=== PATIENT | female | born 1995 | race Caucasian/White ===

== ENCOUNTER 2017-01-17 06:35 | Inpatient (IN) | payer OTHER ==
[~2017-01-17] VITALS: Ht 149.9 cm; Wt 71.2 kg
[2017-01-17 07:30] VITALS: BP 114/74
[2017-01-17] MEDS ORDERED: PROMETHAZINE 25 MG/ML VIAL IVP PRN (07:35)
[2017-01-17] MEDS ORDERED: OXYTOCIN 20 UNITS in LACTATED RINGERS 1,000 ML IV SCH (07:35)
[2017-01-17] MEDS ORDERED: NALBUPHINE 10 MG/ML AMP IVP PRN (07:35)
[2017-01-17] MEDS ORDERED: CARBOPROST 250 MCG/ML AMP IM PRN (07:35)
[2017-01-17] MEDS ORDERED: LACTATED RINGERS 1,000 ML IV SCH (07:35)
[2017-01-17] MEDS ORDERED: METHYLERGONOVINE 0.2 MG/ML AMP IM PRN (07:35)
[2017-01-17] MEDS ORDERED: AMPICILLIN 2,000 MG in NACL 0.9% 100 ML IV STA (07:50)
--- NOTE | 2017-01-17 09:12 | NUR ---
PATIENT HAS BEEN SCREENED AND CATEGORIZED LOW NUTRITION RISK. PATIENT WILL BE SEEN WITHIN 7 DAYS OF ADMISSION. 01/23/[address]
[2017-01-17 09:17] LABS: BASOPHILS # (AUTO) 0.1 K/uL (0.00-0.22); BASOPHILS % (AUTO) 0.8 % (0.0-2.0); EOSINOPHILS # (AUTO) 0.1 K/uL (0-0.4); EOSINOPHILS % (AUTO) 0.4 % (0.0-4.0); HEMATOCRIT 37.7 % (36-48); HEMOGLOBIN 12.6 g/dL (12.0-16.0); LYMPHOCYTES # (AUTO) 1.8 K/uL (2.5-16.5); LYMPHOCYTES % (AUTO) 13.6 % (20.5-51.1); MEAN CORPUSCULAR HEMOGLOBIN 30 pg (27-31); MEAN CORPUSCULAR HGB CONC 33 g/dL (33-37); MEAN CORPUSCULAR VOLUME 89 fL (80-94); MONOCYTES # (AUTO) 0.6 K/uL (0.8-1.0); MONOCYTES % (AUTO) 4.4 % (1.7-9.3); NEUTROPHILS # (AUTO) 10.7 K/uL (1.8-7.7); NEUTROPHILS % (AUTO) 80.8 % (42.2-75.2); PLATELET COUNT (AUTO) 252 K/uL (140-450); RED BLOOD CELL COUNT(AUTO) 4.26 MIL/uL (4.20-5.40); RED CELL DISTRIBUTION WIDTH 13.6 % (11.6-13.7); WHITE BLOOD COUNT (AUTO) 13.3 K/uL (4.8-10.8)
[2017-01-17 09:33] LABS: ALBUMIN 2.5 g/dL (3.4-5.0); ANION GAP 15.3 (8-16); CARBON DIOXIDE 20.4 mmol/L (21-32); CREATININE 0.6 mg/dL (0.6-1.3); POTASSIUM 3.7 mmol/L (3.5-5.1); TOTAL BILIRUBIN 0.4 mg/dL (0.0-1.0)
[2017-01-17 10:07] LABS: BILIRUBIN,URINE NEGATIVE (NEGATIVE); BLOOD, URINE 2+ (NEGATIVE); COLOR,URINE YELLOW (YELLOW); LEUKOCYTE ESTERASE ,URINE NEGATIVE (NEGATIVE); NITRITE, URINE NEGATIVE (NEGATIVE); PH,URINE 7.5 (5.0-9.0); UGLUCOSE NEGATIVE (NEGATIVE)
[2017-01-17 10:19] LABS: APPEARANCE,URINE SLIGHTLY HAZY (CLEAR)
[2017-01-17 10:20] LABS: RBC,URINE 11-20 (MOD) /HPF (0-5)
[2017-01-17] MEDS ORDERED: AMPICILLIN 2,000 MG VIAL ONE (10:26)
[2017-01-17] MEDS ORDERED: OXYTOCIN 10 UNITS/ML VIAL IM SCH (12:00)
[2017-01-17] MEDS ORDERED: AMPICILLIN 1,000 MG VIAL ONE ×2 (14:13→18:21)
[2017-01-17] MEDS: AMPICILLIN 1,000 MG VIAL IVP SCH ×2 (14:28→18:15)
[2017-01-17] MEDS ORDERED: METHYLERGONOVINE 0.2 MG/ML AMP ONE (18:39)
[2017-01-17] MEDS ORDERED: OXYTOCIN 10 UNITS/ML VIAL ONE (18:47)
[2017-01-17] MEDS ORDERED: LIDOCAINE 1% 50 ML ONE (19:01)
[2017-01-17] MEDS ORDERED: MISOPROSTOL 100 MCG TAB RC SCH (19:10)
[2017-01-17] MEDS ORDERED: INFLUENZA VIRUS VACCINE QUAD 0.5 ML SYR IMVAC SCH (21:00)
[2017-01-17] MEDS: IBUPROFEN 800 MG TAB PO PRN (23:56)
[2017-01-18] MEDS ORDERED: TEMAZEPAM 15 MG CAP PO PRN ×2 (00:35)
[2017-01-18] MEDS ORDERED: METHYLERGONOVINE 0.2 MG TAB PO PRN (00:35)
[2017-01-18] MEDS ORDERED: METHYLERGONOVINE 0.2 MG/ML AMP IM PRN (00:35)
[2017-01-18] MEDS ORDERED: oxyCODONE/APAP 5/325 MG 1 TAB TAB PO PRN ×2 (00:35)
[2017-01-18] MEDS ORDERED: MEASLES, MUMPS, AND RUBELLA 1 VIAL SQVAC PRN (00:35)
[2017-01-18] MEDS ORDERED: BENZOCAINE/MENTHOL 20%-0.5% 60 GM CAN TP PRN (00:35)
[2017-01-18] MEDS ORDERED: OXYTOCIN 10 UNITS/ML VIAL IM PRN (00:35)
[2017-01-18] MEDS ORDERED: BISACODYL 10 MG SUPP RC PRN (00:35)
[2017-01-18] MEDS ORDERED: SODIUM PHOSPHATE 118 ML ENEM RC PRN (00:35)
[2017-01-18] MEDS ORDERED: HYDROcodone/APAP 5/325 MG 1 TAB TAB PO PRN ×2 (00:35)
[2017-01-18] MEDS: IBUPROFEN 800 MG TAB PO PRN (06:58)
[2017-01-18] MEDS ORDERED: CALCIUM POLYCARBOPHIL 625 MG TAB PO SCH (09:00)
[2017-01-18 17:41] LABS: HEMATOCRIT 24.3 % (36-48); HEMOGLOBIN 8.3 g/dL (12.0-16.0)
[2017-01-18] MEDS ORDERED: SENNA 8.6 MG TAB PO SCH (21:00)
[2017-01-18] MEDS ORDERED: DOCUSATE SOD/SENNA 50/8.6 MG 1 TAB PO SCH (21:00)
[2017-01-18] MEDS ORDERED: BISACODYL 5 MG TABEC PO SCH (21:00)
[2017-01-19] MEDS ORDERED: DOCUSATE SOD/SENNA 50/8.6 MG 1 TAB PO SCH (21:00)
== END 2017-01-19 18:45 | disposition home or self-care (01) | DRG 560 ==
LOC: MLD 06:35 → MFCC 22:27
PROVIDERS: ADMIT Obstetrics & Gynecology; ATTEND Obstetrics & Gynecology
PROC: 10E0XZZ Delivery of Products of Conception, External Approach (ICD-10-PCS; principal; 2017-01-17)
PROC: 0HQ9XZZ Repair Perineum Skin, External Approach (ICD-10-PCS; 2017-01-17)
DX: O42.92 Full-term premature rupture of membranes, unspecified as to length of time between rupture and onset of labor (principal); O70.0 First degree perineal laceration during delivery; O89.4 Spinal and epidural anesthesia-induced headache during the puerperium; Z37.0 Single live birth; Z3A.39 39 weeks gestation of pregnancy; Z86.19 Personal history of other infectious and parasitic diseases
CPT/HCPCS: 36415; 59409; 80053; 81001; 85018; 85025; 86592; 86886; 86900; 86901; 87086; 87653-90; J0290; J2001; J2210; J2590; J7120